=== PATIENT | female | born 1985 | race Caucasian/White ===

== ENCOUNTER 2023-11-08 11:13 | Emergency (ER) | payer OTHER ==
[~2023-11-08] VITALS: Ht 175.3 cm; Wt 97.5 kg
[2023-11-08 11:29] VITALS: BP 160/96; PULSE 93; RESP 18; TEMP 97.8; O2SAT 97
[2023-11-08] MEDS ORDERED: KETOROLAC 60 MG/2 ML VIAL IM ONE (11:40)
[2023-11-08] MEDS: IBUPROFEN 600 MG TAB PO ONE (12:33)
[2023-11-08] MEDS ORDERED: BACI-418 TP (12:45)
[2023-11-08] MEDS ORDERED: IBUP-1842 PO (12:45)
[2023-11-08] MEDS ORDERED: LID5T TP (12:45)
[2023-11-08 13:07] VITALS: BP 160/96; PULSE 93; RESP 18; TEMP 97.8; O2SAT 97
== END 2023-11-08 14:55 | disposition home or self-care (01) ==
LOC: MED 11:13
DX: S20.212A Contusion of left front wall of thorax, initial encounter (principal); S50.812A Abrasion of left forearm, initial encounter; Z79.1 Long term (current) use of non-steroidal anti-inflammatories (NSAID); Z79.899 Other long term (current) drug therapy; W18.39XA Other fall on same level, initial encounter; Y93.89 Activity, other specified; Y92.89 Other specified places as the place of occurrence of the external cause; Y99.8 Other external cause status
CPT/HCPCS: 71101; 99283